=== PATIENT | female | born 1990 | race African-American/Black ===

== ENCOUNTER 2020-07-20 21:31 | Emergency (ER) | payer BC ==
[~2020-07-20] VITALS: Ht 162.6 cm; Wt 68.2 kg
[2020-07-20 21:38] VITALS: TEMP 97.2
[2020-07-21 00:56] VITALS: BP 114/71; PULSE 82
== END 2020-07-21 01:04 | disposition home or self-care (01) ==
LOC: COL.ER 21:31
DX: O99.712 Diseases of the skin and subcutaneous tissue complicating pregnancy, second trimester (principal); L23.6 Allergic contact dermatitis due to food in contact with the skin; Z3A.00 Weeks of gestation of pregnancy not specified; Z91.011 Allergy to milk products
CPT/HCPCS: J1100; J1200; J7030